=== PATIENT | male | born 1990 | race Two or more races ===

== ENCOUNTER 2019-03-25 19:35 | Inpatient (IN) | payer OTHER ==
[~2019-03-25] VITALS: Ht 170.2 cm; Wt 77.0 kg
[2019-03-25] MEDS ORDERED: PERTUSS(ACELL),DIPH,TET VAC/PF 0.5 ML VIAL IM ONE (20:30)
[2019-03-25] MEDS ORDERED: ONDANSETRON HCL 4 MG/2 ML VIAL IVP PRN (20:30)
[2019-03-25] MEDS ORDERED: ACETAMINOPHEN 325 MG TABLET PO PRN (20:30)
[2019-03-25] MEDS ORDERED: 0.9% SODIUM CHLORIDE 10 ML SYRINGE IVP PRN (20:30)
[2019-03-25 20:50] LABS: BASOPHILS % (AUTO) 0.3 % (0.0-2.0); EOSINOPHILS % (AUTO) 0 % (1.0-6.0); HEMATOCRIT 45.4 % (41-53); HEMOGLOBIN 15.2 g/dL (13.5-17.5); LYMPHOCYTES % (AUTO) 9.4 % (22.0-44.0); MEAN CORPUSCULAR HEMOGLOBIN 30.8 pg (26.0-34.0); MEAN CORPUSCULAR HGB CONC 33.4 G/dL (31.0-37.0); MEAN CORPUSCULAR VOLUME 92 fL (80-100); MONOCYTES # (AUTO) 0.5 K/uL (0.1-1.0); MONOCYTES % (AUTO) 4.6 % (2.0-9.0); NEUTROPHILS # (AUTO) 8.8 K/uL (1.8-7.7); PLATELET COUNT (AUTO) 274 K/uL (150-450); RED BLOOD CELL COUNT(AUTO) 4.93 MIL/uL (4.50-5.90)
[2019-03-25 20:52] LABS: ANION GAP 7 mmol/L (8-16); CALCIUM, TOTAL 9.4 mg/dL (8.8-10.5); CARBON DIOXIDE 31 mmol/L (22-29); CHLORIDE 103 mmol/L (98-107); CREATININE 1.04 mg/dL (0.60-1.30); GLOMERULAR FILTR. RATE CALC > 60 mL/min (>60); GLUCOSE,RANDOM 108 mg/dL (70-110); POTASSIUM 4.9 mmol/L (3.5-5.1); SODIUM SERUM 141 mmol/L (136-145); UREA NITROGEN, BLOOD 12 mg/dL (7-18)
[2019-03-25 20:53] LABS: NEUTROPHILS % (AUTO) 85.7 % (40.0-70.0)
[2019-03-25 20:58] LABS: ALANINE AMINOTRANSFERASE 19 U/L (12-78); ALBUMIN 4.4 g/dL (3.4-5.0); ALKALINE PHOSPHATASE 65 U/L (46-116); ASPARTATE AMINOTRANSFERASE 18 U/L (15-37); BILIRUBIN,TOTAL 0.5 mg/dL (0.1-1.0); TOTAL PROTEIN, SERUM 7.8 g/dL (6.4-8.2)
[2019-03-25 21:20] VITALS: BP 118/77
[2019-03-25 21:33] LABS: AMPHET/METH SCREEN,URINE NEGATIVE (NEGATIVE); BARBITURATE SCREEN, URINE NEGATIVE (NEGATIVE); BENZODIAZEPINES SCREEN,URINE NEGATIVE (NEGATIVE); CANNABINOID SCREEN,URINE POSITIVE (NEGATIVE); COCAINE SCREEN,URINE NEGATIVE (NEGATIVE); METHADONE SCREEN, URINE NEGATIVE (NEGATIVE); OPIATE SCREEN,URINE NEGATIVE (NEGATIVE); PHENCYCLIDINE SCREEN,URINE NEGATIVE (NEGATIVE)
[2019-03-26 00:30] VITALS: BP 104/67
[2019-03-26] MEDS ORDERED: ChlordiazePOXIDE HCL 25 MG CAPSULE PO PRN ×3 (02:45→13:45)
[2019-03-26 04:40] VITALS: BP 119/71
[2019-03-26 07:24] LABS: BASOPHILS % (AUTO) 0.7 % (0.0-2.0); EOSINOPHILS % (AUTO) 1.5 % (1.0-6.0); HEMATOCRIT 41.3 % (41-53); HEMOGLOBIN 14.4 g/dL (13.5-17.5); LYMPHOCYTES # (AUTO) 2.1 K/uL (1.0-4.8); LYMPHOCYTES % (AUTO) 25.6 % (22.0-44.0); MEAN CORPUSCULAR HEMOGLOBIN 31.9 pg (26.0-34.0); MEAN CORPUSCULAR HGB CONC 34.9 G/dL (31.0-37.0); MEAN CORPUSCULAR VOLUME 91 fL (80-100); MONOCYTES # (AUTO) 0.8 K/uL (0.1-1.0); MONOCYTES % (AUTO) 10.1 % (2.0-9.0); NEUTROPHILS # (AUTO) 5.1 K/uL (1.8-7.7); NEUTROPHILS % (AUTO) 62.1 % (40.0-70.0); PLATELET COUNT (AUTO) 260 K/uL (150-450); RED BLOOD CELL COUNT(AUTO) 4.52 MIL/uL (4.50-5.90); RED CELL DISTRIBUTION WIDTH 13.6 % (11.5-14.5)
[2019-03-26 07:28] VITALS: BP 121/79
[2019-03-26 07:40] LABS: ALANINE AMINOTRANSFERASE 15 U/L (12-78); ALBUMIN 3.9 g/dL (3.4-5.0); ALKALINE PHOSPHATASE 56 U/L (46-116); ANION GAP 6 mmol/L (8-16); ASPARTATE AMINOTRANSFERASE 15 U/L (15-37); BILIRUBIN,TOTAL 0.8 mg/dL (0.1-1.0); CALCIUM, TOTAL 9.1 mg/dL (8.8-10.5); CARBON DIOXIDE 31 mmol/L (22-29); CHLORIDE 104 mmol/L (98-107); CREATININE 1.01 mg/dL (0.60-1.30); GLOMERULAR FILTR. RATE CALC > 60 mL/min (>60); GLUCOSE,RANDOM 98 mg/dL (70-110); POTASSIUM 3.9 mmol/L (3.5-5.1); SODIUM SERUM 141 mmol/L (136-145); TOTAL PROTEIN, SERUM 7.1 g/dL (6.4-8.2); UREA NITROGEN, BLOOD 14 mg/dL (7-18)
[2019-03-26] MEDS: FOLIC ACID 1 MG TABLET PO SCH (08:24)
[2019-03-26] MEDS: THIAMINE HCL 100 MG TABLET PO SCH (08:24)
[2019-03-26] MEDS: MULTIVITAMINS, THERAPEUTIC TABLET PO SCH (08:24)
[2019-03-26] MEDS ORDERED: LORazepam 2 MG/ML VIAL IVP PRN (11:15)
[2019-03-26] MEDS ORDERED: SODIUM CHLORIDE 0.9% 1,000 ML IV SCH (11:15)
[2019-03-26] MEDS ORDERED: ONDANSETRON HCL 4 MG/2 ML VIAL IVP PRN (11:30)
[2019-03-26] MEDS ORDERED: BISACODYL 10 MG RECTAL RECTAL SUPPOSITORY PR PRN (11:30)
[2019-03-26] MEDS ORDERED: IPRATROPIUM BROMIDE 0.5 MG/2.5 ML NEB SOLUTION NEB PRN (11:30)
[2019-03-26] MEDS ORDERED: ACETAMINOPHEN 325 MG TABLET PO PRN (11:30)
[2019-03-26] MEDS ORDERED: MAGNESIUM HYDROXIDE SUSPENSION 30 ML UDCUP PO PRN (11:30)
[2019-03-26] MEDS ORDERED: ALBUTEROL SULFATE 2.5 MG/0.5 ML NEB SOLUTION NEB PRN (11:30)
[2019-03-26 12:39] VITALS: BP 115/65
[2019-03-26] MEDS: PANTOPRAZOLE SODIUM 40 MG DR TABLET PO SCH (14:05)
[2019-03-26] MEDS ORDERED: FAMOTIDINE 10 MG/ML 2 ML VIAL IVP SCH (15:15)
[2019-03-26 15:49] VITALS: BP 131/69
[2019-03-26 19:59] VITALS: BP 119/65
[2019-03-27 02:18] VITALS: BP 118/60
[2019-03-27 05:34] VITALS: BP 116/73
[2019-03-27] MEDS ORDERED: ChlordiazePOXIDE HCL 25 MG CAPSULE PO PRN (07:00)
[2019-03-27 07:53] VITALS: BP 104/61
[2019-03-27] MEDS: ChlordiazePOXIDE HCL 25 MG CAPSULE PO SCH ×2 (09:00→09:23)
[2019-03-27] MEDS: MULTIVITAMINS, THERAPEUTIC TABLET PO SCH (09:23)
[2019-03-27] MEDS: THIAMINE HCL 100 MG TABLET PO SCH (09:23)
[2019-03-27] MEDS: FOLIC ACID 1 MG TABLET PO SCH (09:23)
[2019-03-27] MEDS: PANTOPRAZOLE SODIUM 40 MG DR TABLET PO SCH (09:23)
[2019-03-27 12:06] VITALS: BP 111/65
[2019-03-27 15:52] VITALS: BP 100/62
[2019-03-27 20:00] VITALS: BP 109/73
[2019-03-28 00:05] VITALS: BP 106/71
[2019-03-28 05:05] VITALS: BP 119/60
[2019-03-28 08:30] VITALS: BP 110/72
[2019-03-28] MEDS: PANTOPRAZOLE SODIUM 40 MG DR TABLET PO SCH (09:00)
[2019-03-28] MEDS: MULTIVITAMINS, THERAPEUTIC TABLET PO SCH (09:00)
[2019-03-28] MEDS: THIAMINE HCL 100 MG TABLET PO SCH (09:00)
[2019-03-28] MEDS: FOLIC ACID 1 MG TABLET PO SCH (09:00)
[2019-03-28 12:00] VITALS: BP 124/85
[2019-03-28 16:19] VITALS: BP 107/60
[2019-03-28 19:48] VITALS: BP 118/74
[2019-03-29 00:36] VITALS: BP 118/60
[2019-03-29 04:13] VITALS: BP 97/68
[2019-03-29] MEDS ORDERED: ChlordiazePOXIDE HCL 10 MG CAPSULE PO PRN (07:00)
[2019-03-29 08:17] VITALS: BP 99/66
[2019-03-29] MEDS ORDERED: ChlordiazePOXIDE HCL 10 MG CAPSULE PO SCH (09:00)
[2019-03-29] MEDS: MULTIVITAMINS, THERAPEUTIC TABLET PO SCH (09:00)
[2019-03-29] MEDS: FOLIC ACID 1 MG TABLET PO SCH (09:00)
[2019-03-29] MEDS: THIAMINE HCL 100 MG TABLET PO SCH (09:00)
[2019-03-29] MEDS: PANTOPRAZOLE SODIUM 40 MG DR TABLET PO SCH (09:00)
[2019-03-29 12:11] VITALS: BP 120/65
[2019-03-29] MEDS ORDERED: FOLI1 PO (14:59)
[2019-03-29] MEDS ORDERED: MULT-723 PO (15:00)
[2019-03-29] MEDS ORDERED: THIA100T67 PO (15:01)
[2019-03-29 15:39] VITALS: BP 129/76
[2019-03-30] MEDS ORDERED: ChlordiazePOXIDE HCL 10 MG CAPSULE PO PRN (07:00)
== END 2019-03-29 16:00 | DRG 897 ==
LOC: EDBD 19:37 → EMS 19:37 → 6S 20:00
PROVIDERS: ADMIT Internal Medicine; ATTEND Internal Medicine
DX: F10.239 Alcohol dependence with withdrawal, unspecified (principal); F17.210 Nicotine dependence, cigarettes, uncomplicated; F12.90 Cannabis use, unspecified, uncomplicated; F43.21 Adjustment disorder with depressed mood; S00.212A Abrasion of left eyelid and periocular area, initial encounter; X58.XXXA Exposure to other specified factors, initial encounter; Y93.89 Activity, other specified; Y92.89 Other specified places as the place of occurrence of the external cause; Y99.8 Other external cause status
CPT/HCPCS: 90715; G0480; J3490; J7030